=== PATIENT | female | born 1990 ===

== ENCOUNTER 2016-09-28 23:49 | Emergency (ER) | payer MEDICAID ==
[2016-09-28 23:57] VITALS: BP 102/61; PULSE 84; RESP 16; TEMP 98.5; O2SAT 100
--- NOTE | 2016-09-29 00:23 | ED PDOC ---
HPI: Female Pain Time Seen by Provider: 09/29/16 00:16 Chief Complaint (Nursing): Female Genitourinary Chief Complaint (Provider): Vaginal bleeding History Per: Patient Additional Complaint(s): 25 yo female, , presents to ED and bleeding. Pt reports that she thinks she is about 2 months? and began bleeding 3 days ago. (+) cramping as well. Bleeding is not heavy. pt has yet to see OB Past Medical History Reviewed: Nursing Documentation, Vital Signs Vital Signs: Last Vital Signs Temp 98.5 F 09/28/16 23:54 Pulse 84 09/28/16 23:54 Resp 16 09/28/16 23:54 BP 102/61 09/28/16 23:54 Pulse Ox 100 09/28/16 23:54 - Medical History PMH: No Chronic Diseases - Surgical History Surgical History: No Surg Hx - Family History Family History: States: No Known Family Hx - Living Arrangements Living Arrangements: With Family - Social History Current smoker - smoking cessation education provided: No Alcohol: None Drugs: Denies - Allergies Allergies/Adverse Reactions: Allergies Allergy/AdvReac Type Severity Reaction Status Date / Time No Known Allergies Allergy Verified 09/28/16 23:53 Review of Systems ROS Statement: Except As Marked, All Systems Reviewed And Found Negative Gastrointestinal: Positive for: Abdominal Pain Genitourinary Female: Positive for: Vaginal Bleeding Physical Exam - Reviewed Nursing Documentation Reviewed: Yes Vital Signs Reviewed: Yes - Physical Exam Appears: Positive for: Well, Non-toxic, No Acute Distress Head Exam: Positive for: ATRAUMATIC, NORMAL INSPECTION, NORMOCEPHALIC Skin: Positive for: Normal Color, Warm, DRY Eye Exam: Positive for: EOMI, Normal appearance, PERRL ENT: Positive for: Normal ENT Inspection Neck: Positive for: Normal, Painless ROM Cardiovascular/Chest: Positive for: Regular Rate, Rhythm Respiratory: Positive for: CNT, Normal Breath Sounds Gastrointestinal/Abdominal: Positive for: Normal Exam, Bowel Sounds, Soft. Negative for: Tenderness Pelvic Exam: Positive for: External Exam Normal. Negative for: Active Bleeding Back: Positive for: Normal Inspection Extremity: Positive for: Normal ROM Neurologic/Psych: Positive for: Alert, Oriented - Laboratory Results Result Diagrams: 09/29/16 00:25 - ECG O2 Sat by Pulse Oximetry: 100 Medical Decision Making Medical Decision Making: Pt declined analgesics CBC and UA resulted WNL Beta 1055 Blood type O+ FINDINGS: Gestation: Placenta/amniotic fluid: Cannot be adequately evaluated due to the early gestational age. Uterus/cervix: Uterus measures 7.0 x 3.4 x 4.5 CM. Endometrial stripe measures 0.6 CM. No myometrial mass. Ovaries: Right ovary measures 2.9 x 1.8 x 2.8 CM. Left ovary measures 2.7 x 2.9 by 1.4 CM. No mass. Free fluid: No free fluid. IMPRESSION: 1. No acute findings. 2. No ectopic gestation identified. Pt educated on results and demonstrated full understanding. Advised to returnt o ED for repeat beta in 2 days. If any severe pain or bleeding developed, return to ED sooner Disposition - Clinical Impression Clinical Impression: Threatened - Patient ED Disposition Is Patient to be Admitted: No - Disposition Disposition: Routine/Home Disposition Time: 05:35 Condition: STABLE Additional Instructions: Please return to ED for repeat Beta level in 2 days Instructions: Threatened Miscarriage (ED) Print Language: TAJIK - POA Present On Arrival: None
[2016-09-29 00:45] LABS: RBC URINE 37 /hpf (0-3); URINE BILIRUBIN NEGATIVE (NEGATIVE); URINE BLOOD LARGE (NEGATIVE); URINE COLOR YELLOW (YELLOW); URINE GLUCOSE (UA) NEG (Normal); URINE KETONE 20 mg/dL (NEGATIVE); URINE LEUKOCYTE ESTERASE NEG Leu/uL (Negative); URINE PROTEIN NEGATIVE (NEGATIVE); URINE UROBILINOGEN 0.2-1.0 mg/dL (0.2-1.0); WBC URINE 2 /hpf (0-5)
[2016-09-29 00:47] LABS: BASO % 0.3 % (0.0-2.0); EOS # 0.1 K/uL (0.0-0.7); EOS % 0.7 % (0.0-4.0); LYMPH # 2.4 K/uL (1.0-4.3); LYMPH % 24.6 % (20.0-40.0); MEAN CELL VOLUME 84.7 fl (81.0-99.0); MEAN CORPUSCULAR HEMOGLOBIN 27.7 pg (27.0-31.0); MEAN CORPUSCULAR HGB CONC 32.7 g/dL (33.0-37.0); MEAN PLATELET VOLUME 9.1 fl (7.2-11.7); MONO # 0.7 K/uL (0.0-0.8); NEUT # 6.5 K/uL (1.8-7.0); NEUT % 67.4 % (50.0-75.0); RED CELL DISTRIBUTION WIDTH 13.7 % (11.5-14.5); WHITE BLOOD COUNT 9.6 K/uL (4.8-10.8)
--- NOTE | 2016-09-29 03:16 | US ---
EXAM: US , Transvaginal CLINICAL HISTORY: 25 years old, female; Signs and symptoms; Lmp or gestational age (in weeks): 08/15/2016; Other: Bleeding; ; Additional info: R/O ectopic TECHNIQUE: Real-time transvaginal obstetrical ultrasound of the maternal pelvis and a first trimester with image documentation. Transvaginal imaging was used for better evaluation of the fetus and adnexa. COMPARISON: No relevant prior studies available. FINDINGS: Gestation: Placenta/amniotic fluid: Cannot be adequately evaluated due to the early gestational age. Uterus/cervix: Uterus measures 7.0 x 3.4 x 4.5 CM. Endometrial stripe measures 0.6 CM. No myometrial mass. Ovaries: Right ovary measures 2.9 x 1.8 x 2.8 CM. Left ovary measures 2.7 x 2.9 by 1.4 CM. No mass. Free fluid: No free fluid. IMPRESSION: 1. No acute findings. 2. No ectopic gestation identified.
== END 2016-09-29 03:27 | disposition home or self-care (01) ==
LOC: H.ER 23:49
DX: O20.0 Threatened abortion (principal); O20.9 Hemorrhage in early pregnancy, unspecified